=== PATIENT | male | born 1960 | race Caucasian/White ===

== ENCOUNTER → 2016-08-24 | Day surgery (SDC) | payer MEDICAID ==
[~2016-08-24] VITALS: Ht 182.9 cm; Wt 71.6 kg
[~2016-08-24] MED LIST: ACETAMINOPHEN/HYDROcodone 325 MG/5 MG TAB PO PRN; BACITRACIN OPHT OINT 3.5 GM TUBO ONE; BACITRACIN TOP OINT 15 GM TUBE ONE; BUPIVACAINE HCL PF 0.5% 30 ML VIAL ONE; DO NOT ADM ANY ANTICOAGULANT DRUGS XX PRN; HYDR-3516 PO; INSULIN HUMAN REGULAR 1,000 UNITS/10 ML VIAL SQ PRN; LACTATED RINGER'S 1000 ML IV SCH; LIDOCAINE HCL 2% 50 ML VIAL ONE; METOPROLOL TARTRATE 25 MG TAB PO PRN; MIDAZOLAM HCL 2 MG/2 ML VIAL ONE; ONDANSETRON HCL 4 MG/2 ML VIAL IV PUSH ONE; ONDANSETRON HCL 4 MG/2 ML VIAL IV PUSH PRN; PROPOFOL 200 MG/20 ML AMP IV ONE; SODIUM CHLORID 0.9% 500 ML IV SCH
[2016-08-24 10:05] VITALS: BP 114/69; PULSE 61; RESP 20; TEMP 97.8; O2SAT 100
[2016-08-24 10:17] LABS: AUTOMATED NEUTROPHIL # 4.4 TH/MM3 (1.8-7.7); BASOPHIL # 0.1 TH/MM3 (0-0.2); BASOPHIL % 1.1 % (0.0-2.0); EOSINOPHIL # 0.3 TH/MM3 (0-0.4); HEMATOCRIT 42.7 % (39.0-51.0); HEMO FLAGS DIFF FINAL; LYMPHOCYTE # 2.2 TH/MM3 (1.0-4.8); MEAN CELL VOLUME 82.3 FL (80.0-100.0); MEAN CORPUSCULAR HEMOGLOBIN 27.7 PG (27.0-34.0); MEAN CORPUSCULAR HGB CONC 33.6 % (32.0-36.0); NEUT % 58.9 % (16.0-70.0); PLATELET COUNT 217 TH/MM3 (150-450); RED BLOOD COUNT 5.18 MIL/MM3 (4.50-5.90); RED CELL DISTRIBUTION WIDTH 14.2 % (11.6-17.2); WHITE BLOOD COUNT 7.5 TH/MM3 (4.0-11.0)
--- NOTE | 2016-08-24 13:37 | PD.OP ---
Operative Report Date of Surgery: Aug 24, 2016 Preoperative Diagnosis: (1) Genital lesion, male Postoperative Diagnosis: (1) Genital lesion, male Procedure: Excision and fulguration of multiple genital lesions Anesthesia: General Surgeon: Jed Sterling Laborer [place](s): None Operation and Findings: Indication for procedure: Case of a pleasant 56-year-old gentleman with history recurrent benign genital lesions who presents now with recurrent disease. Operative procedure in detail: Patient was brought to the operating suite and placed supine on the OR table. He is in place of the general anesthesia. He was then prepped and draped in normal sterile fashion. After an appropriate timeout was undertaken to proceeded with excisional biopsy of 2 of the larger lesions utilizing a #15 blade. One lesion was involving the ventral aspect of the penis and was approximately 1 cm in size. The other lesion was involving the mid scrotum measuring approximately half centimeter in size. The remaining lesions were all approximately 2-3 mm and they were cauterized with the Bovie electrode. Neosporin ointment was placed over the wound sites and the patient subsequently transferred to the PACU in satisfactory condition. Jed Sterling MD Aug 24, 2016 13:37
[2016-08-24 15:03] VITALS: BP 112/66; PULSE 65; RESP 20; TEMP 97; O2SAT 98
== END | disposition home or self-care (01) ==
LOC: HSDC 09:34
PROVIDERS: ATTEND Urology
DX: N48.89 Other specified disorders of penis (principal)
CPT/HCPCS: 00920; 54065; 85025; 88304; J2250; J2405; J3010; J7120; 88305